=== PATIENT | male | born 1995 | race Caucasian/White ===

== ENCOUNTER → 2016-08-22 | Outpatient (CLI) | payer BC ==
[~2016-08-22] MED LIST: KETO10TA PO; OXYC-57 PO
--- NOTE | 2016-08-22 08:14 | DIAGNOSTIC IMAGING REPORT ---
MRI OF THE LEFT KNEE CLINICAL HISTORY: Left knee pain. Football injury. COMPARISON STUDY: No priors. TECHNIQUE: MRI of the left knee was performed utilizing proton density, T1, and T2-weighted sequences in the axial, sagittal, coronal planes. IV contrast was not administered for this examination. Note that interpretation is suboptimal without plain film correlate. FINDINGS: Menisci: The lateral meniscus is intact. A small radial tear is questioned in the body of the medial meniscus. There is also increased signal seen along the free edge of the medial meniscus which may also represent tear. Ligaments: There is a rupture of the anterior cruciate ligament. The posterior cruciate ligament is intact. The medial and lateral collateral ligaments are within normal limits. Extensor mechanism: The extensor mechanism is intact. Hoffa's fat pad is normal in appearance. Articular cartilage and bone: The articular cartilage is intact and well maintained all 3 compartments. There is bony contusion identified within the posterior tibial plateau both medially and laterally. Joint effusion: There is a large joint effusion. Soft tissues: There is soft tissue edema around the knee, greatest laterally. The musculature surrounding the knee joint is normal in bulk and signal intensity. IMPRESSION: 1. Rupture of the anterior cruciate ligament. 2. Large joint effusion. 3. Bony contusion is identified within the posterior tibial plateau. 4. Question a small radial tear and possibly a free edge tear involving the body of the medial meniscus. 5. The posterior cruciate ligaments, the collateral ligaments, and the lateral meniscus are intact. Electronically signed by: Dequan Shore M.D. 08/22/2016 8:12 AM Dictated Date/Time: 08/22/2016 7:58 AM
== END | disposition home or self-care (01) ==
LOC: C.MRIBC 06:57
PROVIDERS: ATTEND Orthopaedic Surgery
DX: S83.512A Sprain of anterior cruciate ligament of left knee, initial encounter (principal); S80.02XA Contusion of left knee, initial encounter; X58.XXXA Exposure to other specified factors, initial encounter; M25.462 Effusion, left knee

== ENCOUNTER → 2016-10-05 | Day surgery (SDC) | payer BC ==
[2016-09-21 11:36] VITALS: Ht 172.7 cm; Wt 95.5 kg
[~2016-10-05] VITALS: Ht 172.7 cm; Wt 95.5 kg
[~2016-10-05] MED LIST changes: +ATROPINE SULFATE 0.1 MG/ML 5ML SYR IV PRN; +CEFAZOLIN 2000 MG/60 ML D5W IV SCH; +CEFAZOLIN SOD 1 GM VIAL ONE; +CEFAZOLIN SOD 1000MG/55 ML D5W IV ONE; +DEXAMETHASONE SOD INJ 4 MG/ML VIAL ONE; +EpINEphrine INJ 1MG/ML AMP 1 MG/ML AMP ONE; +FENTANYL CITRATE INJ 50 MCG/1 ML 2 ML VIAL ONE; +KETOROLAC TROMETHAMINE 30 MG/ML VIAL IV. PRN; +KETOROLAC TROMETHAMINE 30 MG/ML VIAL ONE; +LABETALOL HCL IV 5 MG/ML 20ML IV ONE; +LABETALOL HCL IV 5 MG/ML 20ML IV PRN; +LACTATED RINGER'S 1000ML 1,000 ML IV SCH; +LIDOCAINE HCL 2% 2 ML VIAL (20MG/ML) ONE; +MEPERIDINE HCL 25 MG/ML CARP IV PRN; +MIDAZOLAM HCL 1 MG/ML 2ML VIAL ONE; +ONDANSETRON INJ 2 MG/ML 2 ML VIAL IV PRN; +ONDANSETRON INJ 2 MG/ML 2 ML VIAL ONE; +OXYCODONE/ACETAMINOPHEN 5-325 TAB PO PRN; +PROMETHAZINE HCL INJ 12.5 MG in SODIUM CHLORIDE 0.9% 50ML 50 ML IV PRN; +PROPOFOL IV EMULSION 10 MG/ML 20 ML VIAL IV ONE; +ROPIVACAINE 0.5% 5 MG/ML 30 ML VIAL ONE; +SODIUM CHLORIDE 0.9% 1000ML 1,000 ML IV SCH
--- NOTE | 2016-10-05 06:57 | History & Physical Bridge - [place] ---
H&P Re-Evaluation Bridge Note: I have examined the patient, reviewed the History & Physical and in the interval since the performance of the History & Physical I have noted the following changes of clinical significance: No changes noted
--- NOTE | 2016-10-05 09:51 | Discharge Instructions-SurgCtr ---
Discharge Instructions Date of Service October 05, 2016. Visit Reason for Visit: Left Knee Acl Rupture Discharge Discharge Diagnosis / Problem: LEFT ACL TEAR, LATERAL MENISCUS TEAR Discharge Goals Goal(s): Decrease discomfort, Improve function, Therapeutic intervention Activity Recommendations Activity Limitations: per Instructions/Follow-up section Weightbearing Status: Left weightbearing (as tolerated WITH BRACE ) Anesthesia . Post Anesthesia Instructions: If you have had General Anesthesia or IV Sedation: * Do not drive today. * Resume driving when surgeon permits. * Do not make important decisions or sign legal documents today. * Call surgeon for: 1. Temperature elevations greater than 101 degrees F. 2. Uncontrollable pain. 3. Excessive bleeding. 4. Persistent nausea and vomiting. 5. Medication intolerance (nausea, vomiting or rash). * For nausea and vomiting use only clear liquids such as: tea, soda, bouillon until nausea subsides, then gradually increase diet as tolerated. * If you have any concerns or questions, call your surgeon's office. If physician is unavailable and it is an emergency, call 911 or go to the nearest emergency room. . Instructions / Follow-Up Instructions / Follow-Up MEDICATIONS: * Resume previous medications unless instructed otherwise by your surgeon. * Always take pain medication on a full stomach or with food to avoid upset stomach. * Do not drink alcohol or drive while taking narcotics. * Ibuprofen or Tylenol may be taken if narcotic not needed. NO IBUPROFEN WHILE TAKING TORADOL SPECIAL CARE INSTRUCTIONS: __ None _X_ Keep extremity elevated and iced x 48 hours; apply ice 20-30 minutes 8-10 times/day. May remove at night. _X_ Crutches __ May discard when able _X_ Brace FOR WEIGHT BEARING UNTIL FOLLOW UP APPOINTMENT __ 24 hrs/day __ Remove at night _X_ Dressing __ Maintain until seen in office, may shower with plastic over site _X_ Remove dressings in 24-48 hours and then may shower _X_ Cover incisions with band-aids after showering _X_ Do not remove steri-strips Call physician if chills or temperature rises above 102 degrees or pain unrelieved by prescribed pain medications. Office [phone] FOLLOW UP IN 2 WEEKS Diet Recommendations Home Diet: resume previous diet Procedures Procedures Performed: Left Knee Arthroscopic Anterior Cruciate Ligament Reconstruction with Hamstring Autograft, Partial Lateral Meniscectomy Pending Studies Studies pending at discharge: no Medical Emergencies . Who to Call and When: Medical Emergencies: If at any time you feel your situation is an emergency, please call 911 immediately. . Non-Emergent Contact Non-Emergency issues call your: Surgeon . . "Provider Documentation" section prepared by Dorian Desai. .
--- NOTE | 2016-10-05 09:55 | [facility] Post Operative Brief Note ---
Immediate Operative Summary Operative Date October 05, 2016. Pre-Operative Diagnosis Left Knee ACL Rupture Post-Operative Diagnosis Same + Lateral Meniscus Tear + Stable Medial Meniscus Tear Procedure(s) Performed Left Knee Arthroscopic Anterior Cruciate Ligament Reconstruction with Hamstring Autograft, Partial Lateral Meniscectomy Surgeon Dr. Soriano Precipitate Washer Surgeon(s) Elisa Desai PA-C Estimated Blood Loss Minimal Findings ACL Tear + Lateral Meniscus Tear + Stable Medial Meniscus Tear Specimens None Anesthesia General Complication(s) None Disposition Recovery Room / PACU
[2016-10-05] MEDS: FENTANYL CITRATE INJ 50 MCG/1 ML 2 ML VIAL IV PRN ×4 (10:17→10:36)
--- NOTE | 2016-10-05 10:54 | OPERATIVE REPORT ---
DATE OF OPERATION: 10/05/2016 PREOPERATIVE DIAGNOSIS: Left knee anterior cruciate ligament tear. POSTOPERATIVE DIAGNOSES: 1. Left knee anterior cruciate ligament tear. 2. Left knee lateral meniscus tear. 3. Stable left knee undersurface medial meniscus tear. PROCEDURES PERFORMED: 1. Left knee exam under anesthesia. 2. Left knee diagnostic arthroscopy. 3. Left knee arthroscopic ACL reconstruction with 7-1/2 mm/9 mm semitendinosis/gracilis autograft. 4. Left knee partial lateral meniscectomy. 5. Left knee trephination of a stable undersurface medial meniscus tear. SURGEON: Mookie Soriano M.D. RICE CLEANING MACHINE TENDER: Dorian Desai PA-C. COMPLICATIONS: None. ESTIMATED BLOOD LOSS: Minimal. TOURNIQUET TIME: 70 minutes at 300 mmHg. ANESTHESIA: General. SPECIMENS: None. 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 He was seen in clinic and diagnosed with an ACL tear. It took a little while to restore his range of motion. His range of motion was now restored and he elected to proceed with ACL reconstruction. OPERATIVE FINDINGS: Examination under anesthesia of the left knee revealed just a trace knee effusion. His range of motion was full extension to 135 degrees of flexion. He had a positive Rosibel, grade 2 pivot, negative anterior drawer, negative posterior drawer. No varus or valgus instability. Markus was negative for mechanical symptoms. ARTHROSCOPIC FINDINGS: Arthroscopic findings revealed a small knee effusion. The undersurface of patella and trochlea were normal. In the intercondylar notch, the ACL was completely torn in the mid substance. There was still a stump which was flipped anteriorly and there was a detachment posteriorly but complete midsubstance tear. The PCL was intact. In the medial compartment, there was a very small stable under service medial meniscus tear towards the periphery. It did not extend to the superior surface. The articular surface was fairly normal. In the lateral compartment, there was a tear of the root of the posterior horn of the lateral meniscus. There was a flap component to this. The remainder of the meniscus was stable. There were some mild age-related changes to the tibial plateau. OPERATIVE PROCEDURE: The patient taken to the operating room, identified and placed on the operating table in supine position. All contact areas were appropriately padded. IV antibiotics were provided by the anesthesia team. An adductor canal block had been provided in the holding area. A left thigh tourniquet was then placed. The left knee was then examined under anesthesia with findings as described above. Left leg was then prepped and draped in the usual sterile fashion. The left leg was elevated and exsanguinated with Esmarch and tourniquet was placed at 300 mmHg. About a 4-5 cm incision made directly over the hamstring tendons. Sharp dissection was carried through the subcutaneous tissue down to the level of the sartorius fascia. The subcutaneous tissue was mobilized circumferentially. An oblique incision was made in the sartorius fascia above the hamstring tendons. The hamstring tendons were then taken sharply off the anterior face of the tibia. Each tendon was isolated and a #2 Ticron whipstitch was placed in the end of each tendon. Each tendon was then harvested with a closed ended tendon stripper. They were taken to the back table. They were cut to 210 mm in length. The muscle was stripped off the opposite end of the tendon. A similar #2 Ticron whipstitch was placed in the opposite end of the tendon. The tendons were then folded over. They were measured and sized. The femoral component sized to a size 7.5 and the tibia to a 9. The graft was then placed on a graft board and 10 pounds of tension were applied until ready for implantation. During graft preparation, routine left knee arthroscopy was then performed through typical anteromedial and anterolateral portals. A superior superolateral outflow portal was established for outflow. The remnant of the ACL was excised. A small to moderate sized notchplasty was performed. With the use of motorized and hand control instruments, the posterior flap tear of the root of the lateral meniscus was debrided back to stable tissue. The remainder of the meniscus was stable, so it was left alone. Attention was then drawn to the medial compartment. I did take a spinal needle and created some holes in the undersurface portion of the medial meniscus to just stimulate bleeding to maximize healing potential. Attention was then drawn to the ACL reconstruction. With the use of the tibial guide set at 50 degrees, a guidewire was placed in the area of the proposed tibial tunnel. It was overreamed with a 9 mm solid reamer. Tunnel was cleaned of all soft tissue. A 6 mm over the top guide was placed in the anteromedial portal. The knee was maximally flexed. A guidewire was placed in the area of proposed femoral tunnel. This was overdrilled with a 4.5 mm Endobutton drill bit. The tunnel length measured 35 mm. A 15 mm closed loop Endobutton was selected. I then overdrilled the femoral tunnel with a 7.5 mm acorn drill bit for a distance of 30 mm. The tunnel was cleaned of all debris. A Beath pin was then used to pass the graft. The graft was looped over a 15 mm closed loop Endobutton and passed through the tibial tunnel up into the femoral tunnel. The Endobutton was flipped. The knee was cycled several times. There was no impingement. The knee was brought out into full extension and the graft was tensioned using the Intrafix tensioner. Twenty pounds of tension were applied. The tunnel was then dilated. A large Biocryl Intrafix sheath was placed followed by 7-9 Biocryl Intrafix screw. The knee was then examined. There was no Rosibel and no pivot. The scope was placed back in the knee and the graft was appropriately tensioned in both flexion and extension. The knee was debrided of all debris. The arthroscopic instruments were then removed from the joint. The portals were closed with 3-0 Prolene suture in a vertical mattress fashion. The sartorius fascia was then closed with 0 Vicryl suture in a [id number] fashion. I then injected the knee joint with 30 mL of 0.5% ropivacaine with epinephrine and 30 mg of Toradol. The tourniquet was then let down for a tourniquet time of 70 minutes. The wound was once again irrigated. Subcutaneous tissues were then closed with 2-0 Dexon suture in a buried interrupted fashion. Skin was closed with 3-0 Prolene suture in a subcuticular fashion. Leg was then cleaned and dried and a sterile dressing with Steri-Strips, Xeroform, 4 x 4s, ABD pad, sterile cast padding, Benji bandage, cold pack and knee immobilizer were applied. The patient was then brought out of general anesthesia and transferred to the recovery room in stable condition. The patient tolerated the procedure with no complications. All needle and sponge counts were correct at the end of the operation. I attest to the content of the Intraoperative Record and any orders documented therein. Any exceptio ns are noted below.
--- NOTE | 2016-10-05 10:57 | Anesthesia Progress Nt - [facility] ---
Anesthesia Post Op Note Date & Time October 05, 2016 at 10:58 Vital Signs Pain Intensity: 4 Vital Signs Past 12 Hours Date Time Temp Pulse Resp B/P Pulse Ox O2 Delivery O2 Flow Rate FiO2 10/05/16 09:46 37.1 113 20 139/91 96 Mask 6 10/05/16 07:51 139/90 10/05/16 07:47 99 24 100 10/05/16 07:47 98 10/05/16 07:46 173/108 10/05/16 07:42 106 10/05/16 07:42 107 24 100 10/05/16 07:41 150/96 10/05/16 07:41 83 18 150/96 100 10/05/16 07:37 87 23 140/96 100 10/05/16 07:37 86 10/05/16 07:36 150/118 10/05/16 07:33 141/82 10/05/16 07:32 83 0 10/05/16 07:07 36.7 90 16 146/95 98 Room Air Notes Mental Status: alert / awake / arousable, participated in evaluation Pt Amnestic to Procedure: Yes Nausea / Vomiting: adequately controlled Pain: adequately controlled Airway Patency, RR, SpO2: stable & adequate BP & HR: stable & adequate Hydration State: stable & adequate Anesthetic Complications: no major complications apparent
[2016-10-05 11:03] VITALS: BP 157/80; PULSE 105; TEMP 37.1; O2SAT 95
== END | disposition home or self-care (01) ==
LOC: X.SURG 06:43
PROVIDERS: ATTEND Orthopaedic Surgery Sports Medicine
DX: S83.512A Sprain of anterior cruciate ligament of left knee, initial encounter (principal); S83.282A Other tear of lateral meniscus, current injury, left knee, initial encounter; S83.242A Other tear of medial meniscus, current injury, left knee, initial encounter; X58.XXXA Exposure to other specified factors, initial encounter; Y93.61 Activity, american tackle football; Z90.89 Acquired absence of other organs; Z98.890 Other specified postprocedural states; Z68.32 Body mass index [BMI] 32.0-32.9, adult; E66.9 Obesity, unspecified